=== PATIENT | female | born 1980 | race Caucasian/White ===

== ENCOUNTER 2020-10-27 13:22 | Emergency (ER) | payer OTHER ==
[2020-10-27 16:21] LABS: BASOPHIL 0.4 % (0-2); EOSINOPHIL 2.7 % (0-5); HCT 43.1 % (37.0-47.0); HGB 13.6 g/dl (12.5-16.0); LYMPHOCYTE 38.6 % (15-48); MCH 29.1 pg (25.0-31.0); MCHC 31.6 g/dL (32.0-36.0); MCV 92.3 fL (78.0-100.0); MONOCYTE 4.3 % (0-12); MPV 10.2 fL (6.0-9.5); NEUTROPHIL 53.7 % (41-80); NRBC 0; PLT 261 K/uL (150-400); RBC 4.67 M/uL (4.20-5.40); WBC 12.7 K/uL (4.0-10.5)
[2020-10-27 16:38] LABS: BILIRUBIN NEGATIVE (NEGATIVE); BLOOD NEGATIVE Ery/uL (NEGATIVE); CLARITY CLEAR (CLEAR); COLOR YELLOW (YELLOW); GLUCOSE (U) 2+ mg/dL (NORMAL); LEUKOCYTES NEGATIVE Leu/uL (NEGATIVE); NITRITE NEGATIVE (NEGATIVE); PROTEIN NEGATIVE (NEGATIVE); SPECIFIC GRAVITY 1.025 (1.001-1.030); UROBILINOGEN 0.2 mg/dL (0.2-1.0)
[2020-10-27 16:38] LABS: PROTHROMBIN TIME 12.5 SECONDS (11.4-13.6); PTT 28.8 SECONDS (22.2-34.7)
[2020-10-27 16:49] LABS: IRON % SATURATION 10.9 %SAT (20-50)
[2020-10-27 16:50] LABS: ALBUMIN 3.9 g/dL (3.4-5.0); BILIRUBIN - TOTAL 0.4 mg/dL (0.2-1.0); BUN/CREAT RATIO (CALC) 28.1 RATIO; CREATININE 0.57 mg/dL (0.51-0.95); GLOBULIN (CALCULATION) 3.3 g/dL; MAGNESIUM 1.8 mg/dL (1.8-2.4); POTASSIUM 3.8 mmol/L (3.5-5.1); TOTAL PROTEIN 7.2 g/dL (6.4-8.2)
== END 2020-10-27 21:46 | disposition home or self-care (01) ==
LOC: FER 13:22
PROVIDERS: Emergency Medicine
DX: R07.9 Chest pain, unspecified (principal); R74.02 Elevation of levels of lactic acid dehydrogenase [LDH]; R10.9 Unspecified abdominal pain; E11.9 Type 2 diabetes mellitus without complications
CPT/HCPCS: 36415; 71260; 80053; 81003; 83540; 83550; 83605; 83615; 83690; 83735; 84145; 84484; 85025; 85610; 85730; 86850; 86900; 86901; 93005; J7030; Q9967